=== PATIENT | female | born 1960 | race Caucasian/White ===

== ENCOUNTER → 2016-11-30 | Outpatient (CLI) | payer OTHER ==
--- NOTE | 2016-11-30 15:24 | Diagnostic Imaging Report ---
Indications: Right thyroid nodule Technique: Real-time grayscale and duplex Doppler imaging of the thyroid gland was performed Findings: Comparison: 09/02/15 The right thyroid lobe measures 3.8 x 1.4 x 1.4 cm. Heterogeneous parenchymal echogenicity. Circumscribed solid, roughly isoechoic nodule again noted in the interpolar region, currently 7 x 7 x 5 mm, avascular, no associated calcification.. Intact blood flow in background parenchyma on duplex Doppler imaging. The left thyroid lobe measures 3.5 x 1.5 x 1.3 cm. Heterogeneous parenchymal echogenicity. 3 x 3 6 mm circumscribed solid, mildly hypoechoic nodule in the interpolar region, avascular on no associated calcification. Intact blood flow in the upper and parenchyma on duplex Doppler imaging. The thyroid isthmus unremarkable. Impression: Diffusely heterogeneous thyroid compatible with thyroiditis/goiter Persistent solid nodule right thyroid lobe increased in size from previous exam. Recommend ultrasound guided percutaneous needle aspiration. Apparently new versus better visualize subcentimeter nodule left thyroid lobe. Continued ultrasound surveillance recommended.
--- NOTE | 2016-12-06 08:15 | Diagnostic Imaging Report ---
Indication: SCREEN Technique: Bilateral Craniocaudal and mediolateral oblique views were obtained. Comparison: 09/02/2015; also outside digital mammogram from [facility] dated 06/03/2013 Findings: The breasts are heterogeneously dense, which may obscure small masses. No parenchymal asymmetry nor architectural distortion. There are benign calcifications on the left. No dominant masses nor suspicious clustered microcalcifications. No skin thickening nor nipple retraction. No axillary adenopathy. No significant interim change. Impression: No mammographic evidence of malignancy. Routine annual rescreening recommended. BI-RADS category 2-benign. Breast density BI-RADS type C-heterogeneously dense breasts, which may obscure small masses
== END | disposition home or self-care (01) ==
LOC: ULS 11:56
DX: Z12.31 Encounter for screening mammogram for malignant neoplasm of breast (principal); E04.1 Nontoxic single thyroid nodule
CPT/HCPCS: 76536; 77067